=== PATIENT | female | born 2005 | race Asian ===

== ENCOUNTER 2024-11-15 12:54 | Outpatient (AMB) | payer OTHER, SELFPAY ==
--- NOTE | 2024-11-15 13:00 | MHC.PC.OV ---
Vital Signs 11/15/24 13:08 Height 5 ft 3 in Weight 126 lb BMI 22.3 BP 120/82 Blood Pressure Location Lt brachial Position Sitting Respiration 18 Pulse 96 Pulse Source Pulse Oximeter Temp 98 F Temp Source Oral Pulse Oximetry (%) 98 Oxygen Delivery Method Room Air Intake Visit Reasons: Establish Care/Needs to update PCP with Insurance Intake Note: Pt is here today as a new patient establishing care. Is last menstrual period known: Yes Last menstrual period: 11/08/24 Allergies No Known Allergies Allergy (Verified 11/15/24 13:15) Medication List - Last Reconciled 11/15/24 by Mary Bear MD levonorgestrel-ethinyl estrad 0.1 mg- 20 mcg 1 tab PO DAILY sertraline 50 mg PO DAILY Tobacco use date assessed: 11/15/24 Dental Screening Dental Screen Date: 11/15/24 Did you have a dental visit in the last 12 months?: Yes Did you have a dental problem in the last 6 months where you did not have access to dental care?: No Was dental information given to patient?: Patient has dentist HPI Establish Care/Needs to update PCP with Insurance HPI Details 19-year-old lady here to establish care with a new PCP and for her physical exam. 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 She has generalized anxiety disorder, currently stable controlled on sertraline 50 mg daily, sees a therapist. She is sexually active, currently on control but has never had cervical cancer screening done. Has been feeling well, with no complaints at present time. [facility] Medical History (Updated 11/19/24 @ 01:50 by Mary Bear MD) History of bulimia Tinea versicolor Myopia of both eyes IgA deficiency Uses control Generalized anxiety disorder Surgical History (Updated 11/15/24 @ 13:46 by Mary Bear MD) No pertinent past surgical history Social History Housing: House Patient Tobacco Use Status: Never used Tobacco e-Cigarette/Vaping Use: Never Used service: No Current occupational exposures/hazards: No Cognitive needs: No Hearing needs: No Vision needs: No Female Reproductive History Menstrual Date of last menstrual period: 11/08/24 control method: pills Questionnaire PHQ-9 Over the last 2 weeks, how often have you been bothered by any of the following problems? 1. Little interest or pleasure in doing things: not at all 2. Feeling down, depressed, or hopeless: not at all 3. Trouble falling or staying asleep, or sleeping too much: not at all 4. Feeling tired or having little energy: not at all 5. Poor appetite or overeating: not at all 6. Feeling bad about yourself - or that you are a failure or have let yourself or your family down: not at all 7. Trouble concentrating on things, such as reading the newspaper or watching television: not at all 8. Moving or speaking so slowly that other people could have noticed. Or the opposite - being so fidgety or restless that you have been moving around a lot more than usual: not at all 9. Thoughts that you would be better off or of hurting yourself in some way: not at all Total score: 0 Depression Screening Interpretation: Negative Depression Screening Done: Yes 77608 - PHQ-9 Billing: Yes Source: Developed by Drs. Ady Darby, Augusta uMstafa, Cole Nieto and colleagues, with an educational eli from [employer]. Thrive Questionnaire Date Thrive assessed: 11/15/24 I am a: Patient What is your living situation today?: I have a steady place to live Within the past 12 months, did the food you bought not last and you didn't have the money to get more?: Never true Within the past 12 months, did you worry whether your food would run out before you got money to buy more?: Never true Do you have trouble paying for medicines?: No Do you have trouble getting transportation to medical appointments?: No Do you have trouble paying your heating and electricity bill?: No Do you have trouble taking care of your child, family member or friend?: No Do you have trouble with day-to-day activities such as bathing, preparing meals, shopping, managing finances, etc.?: No Are you currently unemployed and looking for a job?: No Are you interested in more education?: No Please select the resources that you would like help with: None Currently or been in a relationship where the following occur: No concerns reported THRIVE Score: 0 AUDIT C Alcohol Use Questionnaire (AUDIT-C) 1. How often do you have a drink containing alcohol?: 2-4 times a month 2. How many drinks containing alcohol do you have on a typical day when you are drinking?: 3 or 4 3. How often do you have six or more drinks on one occasion?: Monthly Total Score: 5 Score Reviewed/Action Taken: Yes SABRINA-7 AMB Questionnaire SABRINA-7 Date SABRINA - 7 assessed: 11/15/24 Feeling nervous, anxious, or on edge: 0 = Not at all Not being able to stop or control worryin = Several days Worrying too much about different things: 1 = Several days Trouble relaxin = Not at all Being so restless that it is hard to sit still: 0 = Not at all Becoming easily annoyed or irritable: 1 = Several days Feeling afraid as if something awful might happen: 1 = Several days Total SABRINA-7 score (0-4 normal; 5-9 mild; 10-14 moderate; 15-21 severe): 4 Source: Developed by Drs. Ady Darby, Augusta Mustafa, Cole Nieto and colleagues, with an educational eli from [employer]. SABRINA-7 Assessment Billing SABRINA-7 Assessment Tool: SABRINA-7 Assessment 64422 Review of Systems Const Reports no additional complaints Eyes Details: Up-to-date with her eye exam ENT Reports no additional complaints Card Denies chest pain, Denies chest pain at rest, Denies diaphoresis, Denies syncope, Denies irregular heart rhythm, Denies lightheadedness, Denies dyspnea and Denies dyspnea on exertion Resp Denies dyspnea, Denies dyspnea on exertion and Denies wheezing GI Reports no additional complaints Details: On control Reports no additional complaints Musc Reports no additional complaints Skin/Breast Details: History of tinea versicolor Denies breast pain, Denies breast mass and Denies rash Neuro Denies syncope Psych Reports no additional complaints Endo Reports no additional complaints Jacek/Lymph Reports no additional complaints Aller/Immun Denies wheezing Physical exam (Primary Care) Vital Signs: Last Vital Signs Temp 98 F 11/15/24 13:08 Pulse 96 11/15/24 13:08 Resp 18 11/15/24 13:08 BP 120/82 11/15/24 13:08 Pulse Ox 98 11/15/24 13:08 Oxygen Delivery Method Room Air 11/15/24 13:08 BMI result Body Mass Index 22.3 Tobacco/Smoking Status: Tobacco use Status Tobacco use date assessed 11/15/24 11/15/24 13:03 Patient Tobacco Use Status Never used Tobacco 11/15/24 13:03 e-Cigarette/Vaping Use Never Used 11/15/24 13:03 PHQ-9: PHQ-9 Score PHQ-9: Total score 0 11/15/24 13:51 Depression Screening Interpretation: Negative Thrive Assessment: Date of Thrive Assessment Date Thrive assessed 11/15/24 11/15/24 13:03 Currently or been in a relationship where the following occur: No concerns reported Const General: no acute distress and alert Orientation/consciousness: patient oriented x3 HENMT Head: Yes normocephalic Ears: external ears normal, TM's normal bilaterally and EAC's normal General nose exam: Normal external nose present and No nasal discharge present Face and sinus: Yes face symmetric Mouth: lip normal, oropharynx normal and moist mucous membranes Eyes General: appearance normal, both eyes and all related structures Eyelids: Yes eyelids normal Conjunctivae: conjunctivae normal Sclerae: sclerae normal Pupils: Equal, round and reactive pupils present EOM: EOMs intact bilaterally Neck Neck: Yes full ROM, Yes no lymphadenopathy and Yes supple Thyroid: Thyroid normal Chest Chest palpation & inspection: normal inspection of the chest Breast/axilla palpation: normal palpation of the breasts Resp Effort & Inspection: normal respiratory effort and able to speak in complete sentences Auscultation: clear to auscultation bilaterally Cardio Rate: regular rate Rhythm: regular rhythm Heart sounds: S1 normal heart sound present and S2 normal heart sound present GI Palpation (GI): Soft to palpation, nontender, no guarding and no masses Auscultation: normal bowel sounds General: Yes no CVA tenderness Back/Spine/Pelvis Back: no CVA tenderness and No back tenderness Skin General skin exam: no rashes or lesions noted Neuro General: patient oriented x3, moves all extremities, Normal light touch and pain sensation, no focal motor deficits and CN's II-XI intact bilaterally Cranial nerves: Yes Equal, round and reactive pupils present Cognition (Neuro): normal cognition Gait exam (Neuro): Normal gait present Motor exam (neuro): 5/5 motor strength present throughout Extrem General: Yes normal to inspection, Yes full ROM, Yes no joint enlargement, Yes no pedal edema and Yes normal gait Psych Appearance: grossly normal and well kempt Mental Status: mental status grossly normal Speech and movement: Normal speech and movement present Affect: normal affect Attitude: cooperative Thought process: Normal thought process present Thought content: Normal thought content present Coding Level of Care Code New Pt Prev Care 18-39yr([id number] Diagnoses Generalized anxiety disorder F41.1 Uses control Z78.9 IgA deficiency D80.2 Myopia of both eyes H52.13 Annual visit for general adult medical examination with abnormal findings Z00. Additional Codes SABRINA-7 Assessment Billing - SABRINA-7 Assessment Tool: SABRINA-7 Assessment 53977 ([id number]) PHQ-9 - 11583 - PHQ-9 Billing: Yes ([id number]) Assessment & Plan Assessment & Plan (1) Generalized anxiety disorder: Code(s): F41.1 - Generalized anxiety disorder Category: Medical Plan: Stable on sertraline 50 mg daily, therapist, refill sent on her prescription (2) Uses control: Code(s): Z78.9 - Other specified health status Category: Social Hx Plan: Referred to [facility] for her initial cervical cancer screening and pelvic exam. Currently on control pills (3) IgA deficiency: Comment: Currently followed at [facility] - Dr Fanta Witt Code(s): D80.2 - Selective deficiency of immunoglobulin A [IgA] Category: Medical Plan: Followed by Dr. Fanta Witt at [facility] (4) Myopia of both eyes: Comment: Goes to [facility] Code(s): H52.13 - Myopia, bilateral Category: Medical Plan: Currently followed at [facility] (5) Annual visit for general adult medical examination with abnormal findings: Code(s): Z00.01 - Encounter for general adult medical examination with abnormal findings Plan: Will check appropriate labs. Recommended dental visit every 6 months and regular eye exams, at least every 2 years goes to [facility]. Take adequate calcium in diet and vitamin-D 3 at 2000 IU per cap once a day, in addition to weight-bearing exercises to help maintain good muscle tone and weight control. Instructed to do self-breast exam, and recommended to get yearly mammogram, starting at age 40. up-to-date with her vaccines but declines flu vaccine and does not want to get a COVID booster Orders: Orders Aspartate Amino Transferase 11/15/24 D80.2 - Selective deficiency of immunoglobulin A [IgA], F41.1 - Generalized anxiety disorder, H52.13 - Myopia, bilateral, Z00.01 - Encounter for general adult medical examination with abnormal findings, Z78.9 - Other specified health status Basic Metabolic Panel Fasting 11/15/24 D80.2 - Selective deficiency of immunoglobulin A [IgA], F41.1 - Generalized anxiety disorder, H52.13 - Myopia, bilateral, Z00.01 - Encounter for general adult medical examination with abnormal findings, Z78.9 - Other specified health status Immunoglobulins,IgG IgA IgM 11/15/24 D80.2 - Selective deficiency of immunoglobulin A [IgA] Alanine Aminotransferase 11/15/24 D80.2 - Selective deficiency of immunoglobulin A [IgA], F41.1 - Generalized anxiety disorder, H52.13 - Myopia, bilateral, Z00.01 - Encounter for general adult medical examination with abnormal findings, Z78.9 - Other specified health status Lipid Panel 11/15/24 D80.2 - Selective deficiency of immunoglobulin A [IgA], F41.1 - Generalized anxiety disorder, H52.13 - Myopia, bilateral, Z00.01 - Encounter for general adult medical examination with abnormal findings, Z78.9 - Other specified health status Vitamin D 25-OH Total 11/15/24 D80.2 - Selective deficiency of immunoglobulin A [IgA], F41.1 - Generalized anxiety disorder, H52.13 - Myopia, bilateral, Z00.01 - Encounter for general adult medical examination with abnormal findings, Z78.9 - Other specified health status Medications: New levonorgestrel-ethinyl estrad 0.1 mg- 20 mcg 1 tab PO DAILY 28 tabs 12RF
[2024-11-15 13:08] VITALS: BP 120/82; PULSE 96; RESP 18; TEMP 36.6; O2SAT 98; BMI 22.3
--- OUTSIDE RECORDS SUMMARY | 2024-11-15 14:04 | XMS_ITS | Clinical Summary ---
Author Organization [facility] Address [address] [place] [phone] Phone Care Team Providers Care Money Manager Name Role Phone Unavailable Primary Care Provider Unavailabl e Allergies No known active allergies Medications fluticasone (Flonase) 50 MCG/ACT nasal sprayIndications :Allergic rhinitis, unspecified seasonality, unspecified trigger Administer 1 spray into each nostril daily. 1 mL 3 2 Active Additional Information Patient not taking.Reported on 10/05/2022 cetirizine (ZyrTEC Allergy) 10 MG tabletIndication s:Allergic rhinitis, unspecified seasonality, unspecified trigger Take 1 tablet (10 mg total) by mouth nightly as needed for allergies. 30 tablet 3 2 Active Additional Information Patient not taking.Reported on 03/21/2023 ketoconazole 2 % shampooIndicatio ns:Tinea versicolor Apply to damp skin, lather, leave on 5 minutes, and rinse once a day for 3 days. 120 mL 3 Active sertraline 50 MG tabletIndication s:Anxiety and depression Take 1 tablet (50 mg total) by mouth daily. 90 tablet 4 Active levonorgestrel-e thinyl estradiol (Vienva) 0.1-20 MG-MCG per tabletIndication s:PMS (premenstrual syndrome) Take 1 tablet by mouth once daily. 84 tablet 3 4 Active Active Problems Problem Noted Date Diagnosed Date Refused influenza vaccine 02/01/2024 Hypopigmentation 02/01/2024 Assessment & Plan (02/01/2024 2:19 AM EDT): Hypopigmentation on her back. She has used the ketoconazole. May take 1-2 years for the pigment to come back. Acne vulgaris 02/01/2024 Assessment & Plan (02/01/2024 2:31 AM EDT): Mild acne on back. Benzoyl peroxide wash for her back - warned it can bleach towels/materials. Anxiety 03/21/2023 Assessment & Plan (11/09/2023 10:51 PM EDT): Non-recurrent acute serous otitis media of right ear 01/21/2023 Assessment & Plan (01/21/2023 12:18 AM EDT): Will have her use flonase one spray q nostril once a day for 4 weeks. Reviewed how to use it to angle toward outer eye/away from midline. Wears glasses 01/21/2023 Assessment & Plan (02/01/2024 2:14 AM EDT): To f/u with eye doctor as directed. Assessment & Plan (01/21/2023 12:37 AM EDT): To f/u with eye doctor. Wear glasses as directed. Tinea versicolor 10/26/2022 Assessment & Plan (01/21/2023 12:25 AM EDT): Appears much fainter. Using ketoconazole once a month. Assessment & Plan (10/26/2022 4:17 PM EDT): Will treat with ketoconazole shampoo. Discussed that one treatment can treat it or can use it once a day for 3 days. I recommend the once a day for 3 days. Apply in the shower and leave on for 5 minutes and then rinse it off. Can use it once a month to help prevent recurrence until her pigment is back to normal. Discussed that it could take months to a year for the hypopigmentation to resolve. To wear good sunblock when in the sun. Handout given on tinea versicolor from [facility]. Low serum IgA for age 0411/20/2020 Overview (12/23/2022): 11/12/20. To recheck IgA and to also check IgG, IgM and IgE levels. 10/28/22 IgA low at 9. IgM, IgE, and IgG were normal. Referred to Allergy and Immunology. Assessment & Plan (02/01/2024 2:13 AM EDT): Recommend that patient see Allergy and Wireworker provider regarding low IgA level. Lisa gave list of corporate trust officer/immunologists for patient to call for appt. Assessment & Plan (06/13/2023 9:10 PM EDT): Patient to call to book International Editorial Producer and Wireworker appt for low IgA. She has the number to call on the portal. Assessment & Plan (03/21/2023 10:38 PM EDT): She has not called allergy/immunology yet for an appt. I offered to have our staff call to see if they will let us make appt, but patient said she will call. I gave her the numbers again for [facility]. I have to look into Dr. Coello's number since he just opened a practice. I will send her a [employer] message with the information. Assessment & Plan (01/21/2023 12:24 AM EDT): Recommend that patient see corporate trust officer. Patient to call corporate trust officer. [facility] or [facility] allergy. Patient notes that she is ok with notes being sent to corporate trust officer that have her anxiety/depression information on them. Assessment & Plan (10/26/2022 4:14 PM EDT): To check immunoglobulins due to history of low IgA in the past. Patient said can go this week. List of lab locations given for [facility] labs. Assessment & Plan (12/07/2021 11:22 PM EDT): Will check immunoglobulins given hx of low IgA of 12 in the past. Patient hasn't gone yet for immunoglobulins. Discussed. Patient agrees to go. List of [facility] lab locations given. High serum varicella zoster virus (VZV) antibody titer 06/17/2020 Overview (09/04/2021): Had in the past, but needed rechecked and varicella IgG 08/2021 and it came back negative. Recommend patient receive varivax series. Allergic rhinitis 06/18/2019 Assessment & Plan (02/01/2024 2:17 AM EDT): No allergy issues currently. Assessment & Plan (01/21/2023 12:17 AM EDT): zyrtec prn. Will have her use flonase one spray q nostril once a day for 4 weeks. If stops and sxs worsen then can restart and use it until the end of the summer. Assessment & Plan (12/07/2021 11:24 PM EDT): Patient has had a cough for 2 months. Stuffy nose on and office. Sometimes runny nose. Appears to have allergies. Will start her on zyrtec 10 mg po q day and to start flonase q day. To call if sxs worsen/no improvement over the next couple weeks. Nasal saline spray prn. To work to stopping vaping. Assessment & Plan (06/18/2019 10:24 PM EST): To use flonase as needed. PMS (premenstrual syndrome) 10/18/2017 Assessment & Plan (01/21/2023 12:22 AM EDT): Patient happy with OCP, to continue. Assessment & Plan (12/07/2021 11:29 PM EDT): Doing well on OCP. To continue. Assessment & Plan (06/20/2020 12:04 AM EST): Doing well on OCP, will continue. Refill sent. Assessment & Plan (06/18/2019 10:16 PM EST): Doing well on OCP, she wishes to continue OCP. RX sent. Assessment & Plan (01/22/2019 9:36 PM EDT): Happy with OCP, Lutera, and wishes to continue it. Should still have refills on RX. Assessment & Plan (06/08/2018 11:56 PM EDT): Wishes to continue OCP. Refills were sent at visit last week. Assessment & Plan (06/02/2018 12:40 PM EDT): To take OCP q day as directed. Patient wants to continue current OCP. Will send in refills. Anxiety and depression 10/18/2017 Assessment & Plan (02/01/2024 2:36 AM EDT): SABRINA-7 Score 3 PHQ-9 Score 3. Doing very well on Sertraline 50 mg q day. To continue. I will write another RX for another 90 day supply since just wrote for a 90 days supply last month, but needs to see an adult provider in 6 months for med check Advised patient to call today to get appt scheduled with an adult provider for a med check in 6 months. Will need a well check up in 1 year. Not seeing therapist at this time. Assessment & Plan (11/09/2023 10:52 PM EDT): Patient doing well on sertraline 25 mg q day. Having issue with getting thoughts of people dying (such as her parents). She would like to see if increasing the dose of the sertraline will help with those thoughts. Will increase sertraline to 50 mg po q day. She just picked up her 25 mg 90 day supply so she will take two of the 25 mg pills once a day. Encouraged her to think about something else if the intrusive thought comes. Try to redirect her brain to think about something else. Med check in one month. If patient feels worse on the 50 mg dose then to go back down to the 25 mg dose. Warned of possible risk of suicidal thoughts and if occur to call crisis and let me know. Patient no longer seeing a therapist. Assessment & Plan (06/13/2023 9:11 PM EDT): SABRINA-7 Score 6 - Mild Anxiety. PHQ-9 Score 2 - Minimal Depression. Pleased that patient is doing well on the Sertraline 25 mg q day. Will have her continue. Patient to talk to therapist, but if she stops seeing therapist for now to ask if could see her again in the future if needed. To have another med check in 3-4 months, patient will call to book appt. Assessment & Plan (03/21/2023 10:57 PM EDT): SABRINA 7 Score is 12 Moderate Anxiety, increased from 8 last visit. PHQ 9 Score 3 Minimal depression. Patient feels the same on the escitalopram. She struggles with thoughts of bad things happening which increases her anxiety. She has been on fluoxetine in the past and then tried escitalopram. She denies feeling depressed at this point, it is more the anxiety. She would like to try a different medication. Will wean her off of the escitalopram. To decrease escitalopram dose to 15 mg po q day for 5 days, then 10 mg po q day for 5 days, then 5 mg po q day for 5 days, then can stop it. If she starts to develop symptoms while weaning then can go back to the prior dose she was most recently on in the wean and we can wean her more slowly. Once she is on the escitalopram 5 mg q day dose then she can start taking the Zoloft 12.5 mg (half of the 25 mg tab) po q day for 7 days, and then can increase to one tab po q day (25 mg). I wrote this out for her on a piece of paper with the dates on it. 03/21 - 03/25 to go down to escitalopram 15 mg day 03/26-03/30 to go down to 10 mg q day 03/31-04/04 to go down to 5 mg po q day. 03/31 to also start zoloft 12.5 mg po q day for 7 days, then on 04/07/23 can increase to zoloft 25 mg po q day. If symptoms worsen/no improvement to let me know. If having side effects to let me know. This is also an SSRI so has the same side effect risks that we have discussed in the past. I want to see her back in 4-6 weeks for a med check which we can do virtually since she will be at college at [employer]. Recommend that she start seeing a therapist. She can try one of the counseling centers if unable to find a private one, can try on campus counseling center, and can try contacting the insurance to see about virtual therapist options that they may have. Assessment & Plan (01/21/2023 12:21 AM EDT): SABRINA-7 Score 8 : Mild Anxiety. PHQ-9 Score 2 Discussed anxiety. Patient would like to try increasing escitalopram dose to 20 mg q day. RTC in about 4 weeks for med check. I still recommend that she see a therapist. She still has the list that I gave her on how to find a therapist. I encouraged her to find a therapist. Assessment & Plan (10/26/2022 4:09 PM EDT): Will increase escitalopram to 15 mg po q day since feeling more anxious. If unable to cut pill in half then we could either have her take one 10 mg and one 5 mg pill a day OR we could consider going up to 20 mg q day. If any suicidal thoughts to call crisis and notify me as well. I recommend that she see a therapist. Recommend that she check on campus counseling center for therapy or contact health insurance to inquire about virtual counseling options. Recommended that she send me a [employer] message in a month to let me know how she is doing, sooner if concerns. To RTC in January for WCC/Med check. Assessment & Plan (07/22/2022 11:50 PM EST): SABRINA 7 Score 5 Mild Anxiety. PHQ 9 Score 4 Minimal depression. Doing well on the escitalopram 10 mg q day, will continue current dose. Still encourage her finding a therapist, she can work on it over break. To RTC at the end of November for med check and WCC. To call sooner if sxs worsen. Assessment & Plan (06/04/2022 2:21 AM EDT): SABRINA 7 Score 12 Moderate Anxiety. PHQ 9 Score 7 Mild depression. Recommend that patient see a therapist. She would like to see a different therapist than she did in the past. She doesn't want to see someone at school at the school counseling center. I gave her our handout on how to find a therapist. Recommend that she go to the [employer] website to find a therapist. Also list of counseling centers is on the handout. Discussed medication. Patient was on fluoxetine in the past and she says she felt it didn't help so will try something different this time. Will trial escitalopram to start with 5 mg (half a tablet) po q day for 6 days and then can increase to 10 mg (one tablet) po q day. Discussed black box warning that if causing suicidal thoughts to call for help right away, number for crisis given today. To RTC in 3-4 weeks for med check. To call sooner if concerns. Assessment & Plan (06/18/2019 10:15 PM EST): History of anxiety and depression over the past year. Doing well now. She notes that she is doing well since got out of relationship with her ex boyfriend. No longer seeing therapist. She is doing well. PHQ 9 and SABRINA 7 are in normal range today. Assessment & Plan (01/22/2019 9:38 PM EDT): SABRINA 7 Score 0. Patient wants to come off of the fluoxetine and mom agrees with plan. Will wean her off of the fluoxetine. To wean to 20 mg po q day for 3 weeks, then 10 mg po q day for 3 weeks then stop it. If anxiety or depression sxs worsen to call. If having adverse effects with the wean then to return to last dose she was on in the wean and call us. To have one last visit with therapist. Assessment & Plan (10/17/2018 12:03 AM EST): Will increase fluoxetine to 30 mg q day. To f/u 4 weeks. To continue to see Bryce Lopez. Assessment & Plan (09/19/2018 10:07 PM EST): Her SABRINA 7 has improved. Continue current dose of fluoxetine and continue to see therapist. Assessment & Plan (08/22/2018 10:53 PM EST): Will increase fluoxetine to 20 mg po q day. To RTC in 3-4 weeks for med check. To call if getting suicidal thoughts or if feeling worsening depression. To continue to see Bryce Lopez for therapy. Pt taking a break from swim competitions/meets at this time due to anxiety. Can try taking the pill in the a.m. instead of at night to see if it helps with the fatigue at all. Assessment & Plan (07/28/2018 1:40 AM EST): Will start prozac. Discussed with patient and mom. Reviewed black box warning that if patient getting more depressed on the medication or having suicidal thoughts to call right away and would need to get patient off of the medication. Discussed that the medicine takes time to work. May take up to 4-6 weeks to see effects. To take at the same time q day. To RTC in 3-4 weeks for med check. To continue to see therapist Bryce Lopez. To not take drugs such as marijuana or other substances. To work with therapist. To see if therapist can help with her ability to communicate with her mom. Assessment & Plan (06/08/2018 11:58 PM EDT): Recommend that she talk to Bryce about her anxiety around swim meets. Assessment & Plan (06/02/2018 12:45 PM EDT): Anxiety over swim meets and swimming will be starting up again soon. Recommend counseling. Congenital preauricular pit 06/07/2017 Assessment & Plan (06/18/2019 10:15 PM EST): Stable. No redness and no discharge or swelling. Assessment & Plan (06/08/2018 11:57 PM EDT): To call if redness or d/c. Adolescent idiopathic scoliosis of thoracolumbar region 06/07/2017 Overview (06/07/2018): scoliosis 10/26, 05/29 referred to [facility]. Seen 06/11/15 dx: mild idiopathic adolescent scoliosis, f/u in 4 mos. Seen 10/10/15, to f/u 6 mos. Seen 03/31/16 to f/u in 6 months. Seen 10/08/16 improved to 18 degrees on x-ray from 22 prior, almost skelatally mature, case closed. Assessment & Plan (02/01/2024 2:16 AM EDT): 5 degrees L>R lower back on exam today. Reassurance. Assessment & Plan (01/21/2023 12:25 AM EDT): Was seen by Roman in the past and case was closed. Assessment & Plan (12/07/2021 11:22 PM EDT): Just slight difference from last time measured in office. No back pain. Assessment & Plan (06/20/2020 12:04 AM EST): 7 degrees L>R with forward bend over lower back. To call/RTC if back pain. Assessment & Plan (06/18/2019 10:09 PM EST): Case was closed by Roman in 2016. Still with visible curvature. Assessment & Plan (06/08/2018 11:51 PM EDT): Reassurance at this time. Resolved Problems Problem Noted Date Diagnosed Date Resolved Date Current every day nicotine vaping 12/07/2021 01/21/2023 Assessment & Plan (12/07/2021 11:21 PM EDT): Encouraged patient to cut back on her vaping use. Also encouraged patient to stop vaping, stop drinking alcohol, and to not use THC or other substances. Discussed [facility] program and patient is interested. Will have referral put in. Discussed that therapist can also help with depression sxs, but patient PHQ-9 score was 4 today. Curvature of spine 06/20/2020 0 Achilles tendon pain 08/22/2018 019 Assessment & Plan (09/19/2018 9:53 PM EST): Feeling better now per patient. To call if sxs worsen again and then would refer to PT. Assessment & Plan (08/22/2018 10:57 PM EST): Recommend Ice, elevation, ibuprofen 400 mg q 8 hours for 2 days, then q 6-8 hours prn pain, take it with food. To rest it. ROM exercises - draw in the air with her toes. To not wear shoes that rub on her achilles at this time. If hurts in swim practice then to take a break from swimming for a week. If sxs worsen/no improvement in a week to call and would refer to PT for evaluation. Moderate major depression 06/02/2018 Overview (06/21/2018): Seeing Bryce Lopez for therapy 07/02. Assessment & Plan (06/18/2019 10:15 PM EST): History of anxiety and depression over the past year. Doing well now. She notes that she is doing well since got out of relationship with her ex boyfriend. No longer seeing therapist. She is doing well. PHQ 9 and SABRINA 7 are in normal range today. Assessment & Plan (01/22/2019 9:38 PM EDT): PHQ 9 score 0. Patient wants to come off of the fluoxetine and mom agrees with plan. Will wean her off of the fluoxetine. To wean to 20 mg po q day for 3 weeks, then 10 mg po q day for 3 weeks then stop it. If anxiety or depression sxs worsen to call. If having adverse effects with the wean then to return to last dose she was on in the wean and call us. To have one last visit with therapist. Assessment & Plan (11/22/2018 9:43 PM EDT): To continue fluoxetine. To see Bryce Lopez tomorrow. Assessment & Plan (10/17/2018 12:00 AM EST): Will increase fluoxetine to 30 mg po q day. To continue to see Bryce Lopez for therapy. Discussed with patient and mom monitoring for thoughts of suicidality, to call if occurs. RTC in 4 weeks for med check. Assessment & Plan (09/19/2018 10:07 PM EST): Her PHQ 9 has improved. To continue on current dose of fluoxetine 20 mg po q day, RX sent from refill RX tab. RTC in one month for med check. To continue to see her therapist. Assessment & Plan (08/22/2018 10:43 PM EST): Will increase fluoxetine to 20 mg po q day. To RTC in 3-4 weeks for med check. To call if getting suicidal thoughts or if feeling worsening depression. To continue to see Bryce Lopez for therapy. Assessment & Plan (07/28/2018 1:38 AM EST): Will start prozac. To f/u with therapist. RTC for med check in 3-4 weeks. Assessment & Plan (06/08/2018 11:51 PM EDT): Started seeing Bryce Lopez this week for counseling. Patient likes her. To consider medication if not improving with therapy alone. Assessment & Plan (06/02/2018 12:33 PM EDT): PHQ-9 Shows moderate Depression. Patient is not interested in seeing a therapist. Mom is also on board. I recommended Bryce Lopez and I gave mom the number to call. If can't get in with her to call me back and I will give some other recommendations. Sleep difficulties 06/02/2018 9 Assessment & Plan (10/17/2018 12:02 AM EST): Can continue melatonin 5 mg qhs. To eliminate screen time in the night. Try white noise in the night if needed. To not watch t.v. in the night. Assessment & Plan (08/22/2018 10:46 PM EST): No screen time for one hour before bed. Recommend that the cell phone be kept out of her room. May take up to 5 mg of melatonin 30 mins before bedtime if needed. Assessment & Plan (07/28/2018 1:51 AM EST): Can try to increase to as much as melatonin 5 mg a half hour before bed. No screen time in the night and for one hour before bed. Assessment & Plan (06/08/2018 11:57 PM EDT): Continue melatonin. Recommend no cell phone in her room at night. No screen time in the night. Assessment & Plan (06/02/2018 12:43 PM EDT): To keep off of the cell phone at night. Turn it off or keep it out of her room at night. Can trial melatonin 1 mg to max of 5 mg po qhs to help her sleep if needed. Weight loss 06/02/2018 01/21/2023 Assessment & Plan (07/22/2022 11:55 PM EST): Weight down 2 lbs from last visit. Needs to eat 3 meals a day. Recommend that she meet with patient intake representative, I gave her the business card for [facility] to call for an appt. If she loses more weight to call/RTC. Assessment & Plan (06/20/2020 12:13 AM EST): Down about 9.5 lbs over the past year. Patient denies eating disorder. She thinks decreased activity, decrease muscle has led to weight loss. Recommend healthy eating, 3 meals a day. Mom will have her increase calories. I recommend screening labs. Patient doesn't want to have lab work done. I spoke with mom on the phone with patient and mom states she will talk to patient about it. Will also check a random lipid panel (not fasting). Assessment & Plan (06/08/2018 11:52 PM EDT): Denies eating d/o. It appears that her depression is affecting her weight. Encourage healthy eating. Assessment & Plan (06/02/2018 12:47 PM EDT): Weight down 2.75 lbs from last visit in February. Encouraged healthy eating. It seems that the depression is affecting her appetite. Immunizations Immunization Administration Dates Next Due COVID-19 Pfizer, bivalent, 12+ years 07/22/2022 DTaP 02/05/2008, 5,04/16/2004,03/13,02/11/2004 H1N1 08/04/2009 HPV Vaccine 9 Valent 01/09/2015 HPV, Quadrivalent 07/04/2014,05/02/2014 Hep A, ped/adol 06/08/2018,06/06/2017 Hep B, ped/adol 10/15/2004,03/13/2004,02/11/2004 Hib (PRP-T) 10/15/2004, 4,03/13/2004,02/10 IPV 02/05/2008, 4,03/13/2004,02/10 Influenza 06/20/2007 Influenza, injectable, quadrivalent 10/04/2013,06/05/2012,05/18/2011,06/23,06/25/2008 Influenza, injectable, quadr ivalent, preservative free 04/24/2022,06/19/2020,06/18/2019,06/08,06/06/2017,05/31/2016,05/17/2015 ,05/18/2014,08/13/2009 Influenza, injectable,al valent, preservative free, pediatric 07/23/2021 MMR 04/21/2007,04/16/2004 Meningococcal B Bexsero 07/22/2022,12/07/2021 Meningococcal Conj (Menactra) MCV4P 06/18/2019,0 05/02/2014 Pneumococcal Conjugate 10/15/2004,2003,03/13/2004,02/10 Tdap 05/02/2014 Varicella 12/07/2021,09/03/2021,02/12/2004 Social History Tobacco Use Types Packs/Day Years Used Date Smoking Tobacco: Never Tobacco Cessation:Counseling Given: Not Answered Alcohol Use Standard Drinks/Week Comments Yes 0 (1 standard drink = 0.6 oz pur e alcohol) Hunger/Food Answer Date Recorded In the last 12 months, did y ou or your family ever eat less than you felt you should because there wasn't enough money for food? No 01/30/2024 Stable Housing Answer Date Recorded Are you worried that in the next 2 months you may not have stable housing? No 01/30/2024 Transportation Concerns Answer Date Rec orded In the last 12 months, have you or your family ever had to go without healthcare because you didn't have a way to get there? No 01/30/2024 Hazards in Home Answer Date Recorded Think about the place you li ve. Do you have problems with any of the following? Pests (mice or roaches), mold, no/not working smoke detectors, water leaks, no window guards. No 2023 Financing Utilities Answer Date Recorde d In the last 12 months, has t he electric, gas, oil, or water company threatened to shut off your services in your home? No 01/30/2024 Safety at Home Answer Date Recorded Are you or your family worried about feeling saf e in your home? No 01/30/2024 Outside Support Answer Date Recorded Do you feel that you need mo re support from other people or programs to help you care for yourself or your family? No 01/30/2024 Understanding Health Concerns Answer Da te Recorded Do you need help understandi ng your or your child's healthcare needs (diagnosis, medications, plan, etc.)? No 01/30/2024 Financing Health Concerns Answer Date R ecorded In the last 12 months, was t here a time when your child needed to see a doctor or get medications or supplies but could not because of cost? No 01/30/2024 Missing School or Work Answer Date Wood rded Did you or your child miss s chool or work because of a health problem that could have been avoided? No 01/30/2024 Child Education Answer Date Recorded Do you have concerns about y our/your child's learning or behavior in school, preschool, or daycare? No 01/30/2024 Comments No Sex and Gender Information Value Date Recorded Sex Assigned at Female 06/18/2019 10:43 AM EST Legal Sex Female 6:12 PM EDT Gender Identity Female 06/18/2019 10:43 AM EST Sexual Orientation Straight 06/18/2019 10 :43 AM EST Last Filed Vital Signs Vital Sign Reading Time Taken Comments Blood Pressure 114/70 01/30/2024 9:51 AM EDT Pulse 121 06/10/2021 6:08 PM EDT Temperature 36.7 ??C (98.1 ??F) 10/05/2022 11:[address] Respiratory Rate - - Oxygen Saturation 100% 06/10/2021 6:08 PM EDT Inhaled Oxygen Concentration - - Weight 52.4 kg (115 lb 9.6 oz) 01/30/2024 9:51 A M EDT Height 161.3 cm (5' 3.5 ) 01/30/2024 9:51 AM EDT Body Mass Index 20.16 01/30/2024 9:51 AM EDT Plan of Treatment Health Maintenance Due Date Last Done Comments Influenza Vaccines (#1) 2024 04/24/20, 07/23/2021, 06/19/2020, Additional history exists COVID-19 Vaccine (2023-2 5 season) 2024 07/22/2022, 08/10/2021, 12/22/2020, Additional history exists DTaP,Tdap,and Td Vaccines (7 - Td or Tdap) 05/02/2024 05/02/2014, 02/05/2008, 10/15/2004, Additional history exists HIB Vaccines Completed 10/15/2004, 05/16, 03/13/2004, Additional history exists Hepatitis B Vaccines Completed 10/15/2004, 03/13/2004, 02/11/2004 Pneumococcal Vaccine Completed 10/15/2004, 06/10/2004, 03/13/2004, Additional history exists MMR Vaccines Completed 04/21/2007, 04/16/2004 IPV Vaccines Completed 02/05/2008, 09/2003, 03/13/2004, Additional history exists HPV Vaccines Completed 01/09/2015, 06/16, 05/02/2014 Hepatitis A Vaccines Completed 06/08/2018, 06/06/20 17 Meningococcal Vaccine Completed 06/18/2019, 014 Varicella Vaccines Completed 12/07/2021, 0 09/03/2021, 02/12/2004 Men B Vaccine Completed 07/22/2022, 12/07/2021 Procedures * Due to [place] state law, this organization might not be sharing sensitive test results. Procedure Name Priority Date/Time Associated Diagnosis Comments CHLAMYDIA AND GONORRHEA, AMPLIFIED Routine 01/30/2024 11:24 AM EDT Encounter for screening examination for sexually transmitted disease Encounter for well adult exam with abnormal findings from Last 3 Months or Most Recently Relevant to Health Maintenance Results * Due to [facility] law, this organization might not be sharing sensitive test results. * Chlamydia and Gonorrhoea, Amplified (Urine) (01/30/2024 11:24 AM EDT) C trach JILLIAN Negative Negative [facility] N gonorrhoeae JILLIAN Negative Negative [facility] Urine (Urine, Random (not clean void)) 01/30/2024 11:24 AM EDT 01/30/2024 Comment:Urine, Rando Narrative [facility] - 01/31/2024 5:06 PM EDT Performed at: ??01 - [facility], [address], [place] ??[id number] Medical Billing Coordinator: Tr Dyson MD, Phone: ??[phone] Starr Horowitz MD LAB MICROBIOLOGY - GENERAL OR DERABLES Final Result Performing Organization Address City/State/[facility] Co de Phone Number [facility] [address] [place] [address] from Last 3 Months or Most Recently Relevant to Health Maintenance Insurance [employer] [facility] [employer] [facility] COMMERCIAL Care Teams Money Manager Relationship Specialty Start Date End Date bryce Lopez [facility] Occupational Therapist 06/08/18
--- OUTSIDE RECORDS SUMMARY | 2024-11-15 14:04 | XMS_ITS | Encounter Summary ---
Author Organization [facility] Address [address] [place] [address] Phone Care Team Providers Care Lamp Inspector Name Role Phone Starr Horowitz MD Primary Care Provider [phone] Reason for Visit * Reason Comments Med Refill Encounter Details Date Type Department Care Team (Late st Contact Info) Description 03/07/2018 [facility]ill [facility] [address] [address] Starr Horowitz MD [address] [place] [id number] PMS (premenstrual syndrome) Social History Tobacco Use Types Packs/Day Years Used Date Smoking Tobacco: Never Assessed Comments No Sex and Gender Information Value Date Recorded Sex Assigned at Female 06/18/2019 10:43 AM EST Legal Sex Female 6:12 PM EDT Gender Identity Female 06/18/2019 10:43 AM EST Sexual Orientation Straight 06/18/2019 10 :43 AM EST documented as of this encounter Miscellaneous Notes * Telephone Encounter - Starr Horowitz MD - 03/07/2018 2:31 PM EDT RX sent to pharmacy on record. documented in this encounter Plan of Treatment Not on file documented as of this encounter Visit Diagnoses Diagnosis PMS (premenstrual syndrome) Premenstrual tension syndromes documented in this encounter Care Teams Lamp Inspector Relationship Specialty Start Date End Date Starr Horowitz MD [address] [facility] [place] [address] PCP - General 12/21/17 09/23/24 bryce Lopez 299 [facility] [place] Occupational Therapist 06/08/18 documented as of this encounter
--- OUTSIDE RECORDS SUMMARY | 2024-11-15 14:04 | XMS_ITS | Encounter Summary ---
Author Organization [facility] Address [address] [place] [phone] Phone Care Team Providers Care Air Conditioning Equipment Mechanic Name Role Phone Starr Horowitz MD Primary Care Provider [phone] Encounter Details Date Type Department Care Team (Late st Contact Info) Description 01/01/2018 Conversion Encounter [facility] [address] [address] Starr Horowitz MD [address] [place] [address] Social History Tobacco Use Types Packs/Day Years Used Date Smoking Tobacco: Never Assessed Comments Unknown Sex and Gender Information Value Date Recorded Sex Assigned at Female 06/18/2019 10:43 AM EST Legal Sex Female 6:12 PM EDT Gender Identity Female 06/18/2019 10:43 AM EST Sexual Orientation Straight 06/18/2019 10 :43 AM EST documented as of this encounter Plan of Treatment Not on file documented as of this encounter Visit Diagnoses Not on filedocumented in this encounter Care Teams Air Conditioning Equipment Mechanic Relationship Specialty Start Date End Date Starr Horowitz MD [address] [place] [address] PCP - General 12/21/17 09/23/24 bryce Lopez 299 [facility] Occupational Therapist 06/08/18 documented as of this encounter
--- OUTSIDE RECORDS SUMMARY | 2024-11-15 14:04 | XMS_ITS | Encounter Summary ---
Author Organization [facility] Address [address] [place] [address] Phone Care Team Providers Care Microsoft Dynamics Developer Name Role Phone Starr Horowitz MD Primary Care Provider [phone] Reason for Visit * Reason Comments Med Refill Encounter Details Date Type Department Care Team ([facility] st Contact Info) Description 01/21/2023 [facility]ill [facility] [address] [address] Starr Horowitz MD [address] [place] [address] Anxiety and depression Social History Tobacco Use Types Packs/Day Years Used Date Smoking Tobacco: Never Comments:Vaping nicotine valerie ost never now. Alcohol Use Standard Drinks/Week Comments Yes 0 (1 standard drink = 0.6 oz pure alcohol) Alcohol: not q weekend. Wine with friend. Not alone. With family sometimes. No driving after. Hunger/Food Answer Date Recorded In the last 12 months, did y ou or your family ever eat less than you felt you should because there wasn't enough money for food? No 01/18/2023 Stable Housing Answer Date Recorded Are you worried that in the next 2 months you may not have stable housing? No 01/18/2023 Transportation Concerns Answer Date Rec orded In the last 12 months, have you or your family ever had to go without healthcare because you didn't have a way to get there? No 01/18/2023 Hazards in Home Answer Date Recorded Think about the place you li ve. Do you have problems with any of the following? Pests (mice or roaches), mold, no/not working smoke detectors, water leaks, no window guards. No 2022 Financing Utilities Answer Date Recorde d In the last 12 months, has t he electric, gas, oil, or water company threatened to shut off your services in your home? No 01/18/2023 Safety at Home Answer Date Recorded Are you or your family worried about feeling saf e in your home? No 01/18/2023 Outside Support Answer Date Recorded Do you feel that you need mo re support from other people or programs to help you care for yourself or your family? No 01/18/2023 Understanding Health Concerns Answer Da te Recorded Do you need help understandi ng your or your child's healthcare needs (diagnosis, medications, plan, etc.)? No 01/18/2023 Financing Health Concerns Answer Date R ecorded In the last 12 months, was t here a time when your child needed to see a doctor or get medications or supplies but could not because of cost? No 01/18/2023 Missing School or Work Answer Date Wood rded Did you or your child miss s chool or work because of a health problem that could have been avoided? No 01/18/2023 Comments No Sex and Gender Information Value Date Recorded Sex Assigned at Female 06/18/2019 10:43 AM EST Legal Sex Female 6:12 PM EDT Gender Identity Female 06/18/2019 10:43 AM EST Sexual Orientation Straight 06/18/2019 10 :43 AM EST documented as of this encounter Miscellaneous Notes * Telephone Encounter - Danelle Castellanos MD - 01/21/2023 9:[address] Horowitz rx a different dosage yesterday * Telephone Encounter - Melba Lopez CMA - 01/21/2023 8:00 AM EDT Request for refill on Escitalopram 10 mg tab Looks like medication was increased Please advise and refuse if not an appropriate refill. Thanks Forward to Dr. Castellanos. Thanks documented in this encounter Plan of Treatment Not on file documented as of this encounter Visit Diagnoses Diagnosis Anxiety and depression documented in this encounter Care Teams Microsoft Dynamics Developer Relationship Specialty Start Date End Date Starr Horowitz MD [address] [place] [address] PCP - General 12/21/17 09/23/24 bryce Lopez 299 [facility] Occupational Therapist 06/08/18 documented as of this encounter
--- OUTSIDE RECORDS SUMMARY | 2024-11-15 14:04 | XMS_ITS | Encounter Summary ---
Author Organization [facility] Address [address] [place] [address] Phone Care Team Providers Care Debeaker Name Role Phone Starr Horowitz MD Primary Care Provider [phone] Reason for Visit * Reason Comments Med Refill Encounter Details Date Type Department Care Team ([facility] st Contact Info) Description 02/03/2018 Refill [facility] - [address] [place] [address] Starr Horowitz MD [address] [place] [phone] PMS (premenstrual syndrome) (Primary Dx) Social History Tobacco Use Types Packs/Day Years Used Date Smoking Tobacco: Never Assessed Comments Unknown Sex and Gender Information Value Date Recorded Sex Assigned at Female 06/18/2019 10:43 AM EST Legal Sex Female 6:12 PM EDT Gender Identity Female 06/18/2019 10:43 AM EST Sexual Orientation Straight 06/18/2019 10 :43 AM EST documented as of this encounter Miscellaneous Notes * Telephone Encounter - Tammi Lazaro MA - 02/04/2018 9:13 AM EDT Refill request for OCP, last wcc 05/2017, last refill 11/09/17, was due to come in for OCP check 12/2017 but no showed. documented in this encounter Plan of Treatment Not on file documented as of this encounter Visit Diagnoses Diagnosis PMS (premenstrual syndrome)- Primary Premenstrual tension syndromes documented in this encounter Care Teams Debeaker Relationship Specialty Start Date End Date [facility] [address] [facility] [address] PCP - General 12/21/17 09/23/24 bryce Lopez 299 [facility] Occupational Therapist 06/08/18 documented as of this encounter
--- OUTSIDE RECORDS SUMMARY | 2024-11-15 14:04 | XMS_ITS | Encounter Summary ---
Author Organization [facility] Address [address] [place] [address] Phone Care Team Providers Care Road Manager Name Role Phone Starr Horowitz MD Primary Care Provider [phone] Reason for Visit * Reason Comments Med Refill Encounter Details Date Type Department Care Team ([facility] st Contact Info) Description 09/18/2018 [facility] [address] [address] Starr Horowitz MD [address] [place] [address] Anxiety Social History Tobacco Use Types Packs/Day Years Used Date Smoking Tobacco: Never Smokeless Tobacco: Former Comments:vaping and juuling tried, last time a few months ago. Didn't see the point. Alcohol Use Standard Drinks/Week Comments Yes 0 (1 standard drink = 0.6 oz pure alcohol) had alcohol once, [place] after prom. Comments No Sex and Gender Information Value Date Recorded Sex Assigned at Female 06/18/2019 10:43 AM EST Legal Sex Female 6:12 PM EDT Gender Identity Female 06/18/2019 10:43 AM EST Sexual Orientation Straight 06/18/2019 10 :43 AM EST documented as of this encounter Miscellaneous Notes * Telephone Encounter - Starr Horowitz MD - 09/19/2018 10:26 AM EST RX sent to pharmacy on record. * Telephone Encounter - Starr Horowitz MD - 09/18/2018 5:57 PM EST Patient has appt tomorrow. Will see how she is doing prior to sending in refill. * Telephone Encounter - Julianna Samir - 09/18/2018 8:22 AM EST Request for fluoxetine 20 mg [facility] 06/01 Med check 09/19/18 documented in this encounter Plan of Treatment Not on file documented as of this encounter Visit Diagnoses Diagnosis Anxiety Anxiety state, unspecified documented in this encounter Care Teams Road Manager Relationship Specialty Start Date End Date Starr Horowitz MD [address] [place] [address] PCP - General 12/21/17 09/23/24 bryce Lopez 299 [facility] Occupational Therapist 06/08/18 documented as of this encounter
== END 2024-11-15 13:49 | disposition home or self-care (01) ==
LOC: HO.HMCC 12:55
PROVIDERS: Visit Provider Internal Medicine
DX: F41.1 Generalized anxiety disorder (principal); Z78.9 Other specified health status; D80.2 Selective deficiency of immunoglobulin A [IgA]; H52.13 Myopia, bilateral; Z00.01 Encounter for general adult medical examination with abnormal findings

== ENCOUNTER → 2024-11-15 12:54 | Outpatient (BNVA) | payer OTHER, SELFPAY | PROVIDERS: Visit Provider Internal Medicine | DX: Z00.01 Encounter for general adult medical examination with abnormal findings (principal); F41.1 Generalized anxiety disorder; D80.2 Selective deficiency of immunoglobulin A [IgA]; H52.13 Myopia, bilateral; Z79.899 Other long term (current) drug therapy; Z78.9 Other specified health status | CPT/HCPCS: 96127 ==